=== PATIENT | male | born 1955 | race Caucasian/White ===

== ENCOUNTER → 2019-06-30 | Outpatient (CLI) | payer BC ==
[~2019-06-30] MED LIST: Flomax0.4 MG PO; PROM25 PO; Percocet 5-3251 EACH PO; Tylenol325 MG PO
[2019-06-30 08:50] LABS: BASOPHILS ABSOLUTE AUTO 0.08 K/mm3 (0.00-0.23); BASOPHILS PERCENT AUTO 1 % (0-2); EOSINOPHILS ABSOLUTE AUTO 0.16 K/mm3 (0.00-0.68); EOSINOPHILS PERCENT AUTO 2 % (0-6); Hematocrit 52.6 % (37.0-53.0); Hemoglobin 17.4 g/dL (13.5-17.5); IMMATURE GRAN ABSOLUTE AUTO 0.05 K/mm3 (0.00-0.10); IMMATURE GRAN PERCENT AUTO 1 % (0-1); LYMPHOCYTES ABSOLUTE AUTO 1.36 K/mm3 (0.84-5.20); LYMPHOCYTES PERCENT AUTO 15 % (21-46); MONOCYTES ABSOLUTE AUTO 1.01 K/mm3 (0.16-1.47); MONOCYTES PERCENT AUTO 11 % (4-13); Mean Corpuscular HGB 30.4 pg (26.0-34.0); Mean Corpuscular HGB Conc 33.1 g/dL (31.5-36.5); Mean Corpuscular Volume 92 fL (80-100); Mean Platelet Volume 12.1 fL (9.1-12.4); NEUTROPHILS ABSOLUTE AUTO 6.73 K/mm3 (1.96-9.15); NEUTROPHILS PERCENT AUTO 72 % (41-73); Platelet Count 168 K/mm3 (150-400); RDW Coefficient Variation 13.9 % (11.7-14.2); RDW Standard Deviation 47.1 fL (35.1-46.3); Red Blood Cell Count 5.72 M/mm3 (4.30-5.90); White Blood Cell Count 9.39 K/mm3 (4.00-11.30)
[2019-06-30 08:58] LABS: Albumin, Blood 2.9 g/dL (3.4-5.0); Albumin/Globulin Ratio 0.6 (0.8-1.8); Bilirubin, Total 2.4 mg/dL (0.1-1.0); Bun/Creatinine Ratio 18.1 (12.0-20.0); Creatinine, Blood 1.38 mg/dL (0.60-1.20); Globulin, Blood 4.5 g/dL (2.2-4.0); Potassium, Blood 3.7 mmol/L (3.5-5.5); Total Protein, Blood 7.4 g/dL (6.4-8.2)
== END | disposition home or self-care (01) ==
LOC: LAB EV 08:44 → LAB SHORT 08:44
PROVIDERS: Physician Assistant
DX: R74.8 Abnormal levels of other serum enzymes (principal); R10.32 Left lower quadrant pain; R10.11 Right upper quadrant pain
CPT/HCPCS: 80053; 83690; 85025

== ENCOUNTER → 2019-07-14 | Outpatient (CLI) | payer BC ==
[2019-07-14 10:29] LABS: BASOPHILS ABSOLUTE AUTO 0.08 K/mm3 (0.00-0.23); BASOPHILS PERCENT AUTO 1 % (0-2); EOSINOPHILS PERCENT AUTO 1 % (0-6); Hematocrit 45.3 % (37.0-53.0); Hemoglobin 15.5 g/dL (13.5-17.5); IMMATURE GRAN ABSOLUTE AUTO 0.06 K/mm3 (0.00-0.10); IMMATURE GRAN PERCENT AUTO 1 % (0-1); LYMPHOCYTES ABSOLUTE AUTO 1.04 K/mm3 (0.84-5.20); LYMPHOCYTES PERCENT AUTO 9 % (21-46); MONOCYTES ABSOLUTE AUTO 0.93 K/mm3 (0.16-1.47); MONOCYTES PERCENT AUTO 8 % (4-13); Mean Corpuscular HGB 31.1 pg (26.0-34.0); Mean Corpuscular HGB Conc 34.2 g/dL (31.5-36.5); Mean Corpuscular Volume 91 fL (80-100); Mean Platelet Volume 12.6 fL (9.1-12.4); NEUTROPHILS ABSOLUTE AUTO 9.29 K/mm3 (1.96-9.15); NEUTROPHILS PERCENT AUTO 81 % (41-73); Platelet Count 172 K/mm3 (150-400); RDW Coefficient Variation 16.5 % (11.7-14.2); RDW Standard Deviation 54.4 fL (35.1-46.3); Red Blood Cell Count 4.98 M/mm3 (4.30-5.90)
[2019-07-14 10:39] LABS: Alanine Aminotransfer (ALT/SGP 63 U/L (12-78); Albumin, Blood 2.4 g/dL (3.4-5.0); Albumin/Globulin Ratio 0.5 (0.8-1.8); Alk Phos 384 U/L (40-126); Anion Gap 13 mmol/L (6-16); Aspartate Aminotrans (AST/SGOT 206 U/L (12-37); Bilirubin, Total 6.3 mg/dL (0.1-1.0); Blood Urea Nitrogen 13 mg/dL (8-24); Bun/Creatinine Ratio 14.1 (12.0-20.0); CO2, Blood 27 mmol/L (21-32); Calcium, Blood 8.8 mg/dL (8.5-10.1); Chloride, Blood 101 mmol/L (98-108); Creatinine, Blood 0.92 mg/dL (0.60-1.20); Globulin, Blood 4.5 g/dL (2.2-4.0); Glomerular Filtration Rate >60 (60-); Glucose, Blood 80 mg/dL (70-99); Potassium, Blood 3.3 mmol/L (3.5-5.5); Sodium, Blood 141 mmol/L (136-145); Total Protein, Blood 6.9 g/dL (6.4-8.2)
[2019-07-14 11:30] LABS: International Normalized Ratio 1.2; Prothrombin Time Results 12.7 Sec (9.7-11.5)
== END | disposition home or self-care (01) ==
LOC: LAB SHORT 10:16 → LAB EV 10:16
PROVIDERS: Internal Medicine Critical Care Medicine; Physician Assistant
DX: R06.00 Dyspnea, unspecified (principal); R16.0 Hepatomegaly, not elsewhere classified
CPT/HCPCS: 80053; 85025; 85379; 85610; 85730

== ENCOUNTER 2019-07-30 19:02 | Inpatient (IN) | payer BC ==
[~2019-07-30] VITALS: Ht 170.2 cm; Wt 92.3 kg
[2019-07-30] MEDS ORDERED: OXYC10TA19 PO (19:15)
[2019-07-30 19:35] LABS: BASOPHILS ABSOLUTE AUTO 0.05 K/mm3 (0.00-0.23); BASOPHILS PERCENT AUTO 0 % (0-2); EOSINOPHILS ABSOLUTE AUTO 0.06 K/mm3 (0.00-0.68); EOSINOPHILS PERCENT AUTO 0 % (0-6); Hematocrit 47.6 % (37.0-53.0); Hemoglobin 16.4 g/dL (13.5-17.5); IMMATURE GRAN ABSOLUTE AUTO 0.15 K/mm3 (0.00-0.10); IMMATURE GRAN PERCENT AUTO 1 % (0-1); LYMPHOCYTES ABSOLUTE AUTO 1.06 K/mm3 (0.84-5.20); LYMPHOCYTES PERCENT AUTO 6 % (21-46); MONOCYTES ABSOLUTE AUTO 1.59 K/mm3 (0.16-1.47); MONOCYTES PERCENT AUTO 8 % (4-13); Mean Corpuscular HGB 31.7 pg (26.0-34.0); Mean Corpuscular HGB Conc 34.5 g/dL (31.5-36.5); Mean Corpuscular Volume 92 fL (80-100); Mean Platelet Volume 11.7 fL (9.1-12.4); NEUTROPHILS ABSOLUTE AUTO 16.09 K/mm3 (1.96-9.15); NEUTROPHILS PERCENT AUTO 85 % (41-73); NRBC ABSOLUTE 0.02 K/mm3 (0.00-0.02); NRBC Auto 0.1 /100 WBC (0.0-0.2); Platelet Count 196 K/mm3 (150-400); RDW Coefficient Variation 22.3 % (11.7-14.2); RDW Standard Deviation 72.8 fL (35.1-46.3); Red Blood Cell Count 5.17 M/mm3 (4.30-5.90)
[2019-07-30 19:49] LABS: International Normalized Ratio 2.06; Prothrombin Time Results 21.2 Sec (9.7-11.5)
[2019-07-30 19:57] LABS: Albumin/Globulin Ratio 0.4 (0.8-1.8); Bilirubin, Total 21.2 mg/dL (0.1-1.0); Bun/Creatinine Ratio 36.5 (12.0-20.0); Calcium, Blood 9.2 mg/dL (8.5-10.1); Creatinine, Blood 1.48 mg/dL (0.60-1.20); Globulin, Blood 4.5 g/dL (2.2-4.0); Potassium, Blood 4.1 mmol/L (3.5-5.5); Total Protein, Blood 6.5 g/dL (6.4-8.2)
[2019-07-30 20:41] LABS: Magnesium, Blood 2.6 mg/dL (1.6-2.4); Phosphorus, Blood 3.5 mg/dL (2.5-4.9)
[2019-07-30 21:41] LABS: PCO2 Arterial 37.8 mmHg (35-45); PO2 Arterial 73.7 mmHg (80-100); pH Blood Arterial 7.38 (7.35-7.45)
--- NOTE | 2019-07-30 22:30 | NUR ---
PT ARRIVED TO ICU 6 FROM ER VIA GURNEY. ABLE TO STAND AND PIVOT SELF TO BED. A/O X4. PT IS EDEMATOUS FROM WAIST DOWN. HAS ABD PAIN. STATES HE TAKES OXYCODONE AT HOME. SOILA THIMBLE PRESS OPERATOR HERE AND STATES SHE WANTS 2.5L OF IVF RUN FOR SEPSIS PROTOCOL. LS ARE DIM BUT CLEAR IN UPPER LOBES AND FIN SCATTERED CRACKLES IN BASES. NOT SOB AT THE MOMENT. 5L NC ON. PT IS JAUNDICED T/O.
[2019-07-31 03:19] LABS: BASOPHILS ABSOLUTE AUTO 0.04 K/mm3 (0.00-0.23); BASOPHILS PERCENT AUTO 0 % (0-2); EOSINOPHILS ABSOLUTE AUTO 0.08 K/mm3 (0.00-0.68); EOSINOPHILS PERCENT AUTO 1 % (0-6); IMMATURE GRAN ABSOLUTE AUTO 0.09 K/mm3 (0.00-0.10); IMMATURE GRAN PERCENT AUTO 1 % (0-1); LYMPHOCYTES ABSOLUTE AUTO 1.14 K/mm3 (0.84-5.20); LYMPHOCYTES PERCENT AUTO 7 % (21-46); MONOCYTES ABSOLUTE AUTO 1.42 K/mm3 (0.16-1.47); MONOCYTES PERCENT AUTO 9 % (4-13); Mean Corpuscular HGB 31.3 pg (26.0-34.0); Mean Corpuscular HGB Conc 34.1 g/dL (31.5-36.5); Mean Corpuscular Volume 92 fL (80-100); Mean Platelet Volume 11.3 fL (9.1-12.4); NEUTROPHILS ABSOLUTE AUTO 12.88 K/mm3 (1.96-9.15); NEUTROPHILS PERCENT AUTO 82 % (41-73); Platelet Count 142 K/mm3 (150-400); RDW Coefficient Variation 21.7 % (11.7-14.2); RDW Standard Deviation 70.5 fL (35.1-46.3); Red Blood Cell Count 4.79 M/mm3 (4.30-5.90); White Blood Cell Count 15.65 K/mm3 (4.00-11.30)
[2019-07-31 03:35] LABS: Source, Urine Clean Catch
[2019-07-31 03:38] LABS: Appearance, Urine Clear (Clear); Blood, Urine 1+ (Neg); Color, Urine Amber (P-Yellow); Glucose Qualitative, Urine Neg (Neg); Ketones, Urine 1+ (Neg); Leukocyte Esterase, Urine 1+ (Neg); Nitrite, Urine Pos (Neg); Protein, Urine 2+ (Neg); Urobilinogen, Urine 3+ (Normal)
[2019-07-31 03:40] LABS: Bilirubin, Urine 3+ (Neg)
[2019-07-31 03:43] LABS: Amorphous Light (0-Heavy); Bacteria Mod /hpf; Hyaline Casts 25-50 /lpf (0-2); Red Blood Cells, Urine 0-2 /hpf (0-2); Squamous Epithelial Cells Not Seen /hpf (Few)
[2019-07-31 03:43] LABS: Albumin, Blood 1.8 g/dL (3.4-5.0); Albumin/Globulin Ratio 0.5 (0.8-1.8); Bilirubin, Total 18.1 mg/dL (0.1-1.0); Bun/Creatinine Ratio 34.2 (12.0-20.0); Calcium, Blood 8.2 mg/dL (8.5-10.1); Creatinine, Blood 1.52 mg/dL (0.60-1.20); Globulin, Blood 3.9 g/dL (2.2-4.0); Potassium, Blood 4.2 mmol/L (3.5-5.5); Total Protein, Blood 5.7 g/dL (6.4-8.2)
--- NOTE | 2019-07-31 04:30 | NUR ---
CALLED DR. MATTSON ABOUT GLUCOSE ON LABS BEING 53. NEW ORDERS FOR D50. PT AROUSES EASILY. ABLE TO DRINK FLUID. WILL OFFER JUICE WELL PER DR. MATTSON.
[2019-07-31 05:13] LABS: Adenovirus Not Detected (NOT DETECT); Bordetella pertussis Not Detected (NOT DETECT); Chlamydophila pneumoniae Not Detected (NOT DETECT); Coronavirus 229E Not Detected (NOT DETECT); Coronavirus HKU1 Not Detected (NOT DETECT); Coronavirus NL63 Not Detected (NOT DETECT); Coronavirus OC43 Not Detected (NOT DETECT); Human Metapneumovirus Not Detected (NOT DETECT); Human Rhinovirus/Enterovirus Not Detected (NOT DETECT); Influenza A/2009-H1 Not Detected (NOT DETECT); Influenza A/H1 Not Detected (NOT DETECT); Influenza A/H3 Not Detected (NOT DETECT); Influenza B Not Detected (NOT DETECT); Mycoplasma pneumoniae Not Detected (NOT DETECT); Parainfluenza Virus 1 Not Detected (NOT DETECT); Parainfluenza Virus 2 Not Detected (NOT DETECT); Parainfluenza Virus 3 Not Detected (NOT DETECT); Parainfluenza Virus 4 Not Detected (NOT DETECT); Respiratory Syncytial Virus Not Detected (NOT DETECT)
--- NOTE | 2019-07-31 05:52 | NUR ---
SUMMARY PT WAS ADMITTED FROM ER. A/O X4. HAD ABD PAIN THAT WAS RELIEVED BY ONE DOSE OF FENTANYL. NO SOB SINCE ARRIVING IN UNIT. PT IS EDEMATOUS FROM WAIST DOWN. LACTIC IS TRENDING IN RIGHT DIRECTION. GLUCOSE WAS 53 ON LABS THIS AM. GAVE D50 PER ORDERS AND CRANBERRY JUICE. PT CAME UP TO 107. NO SIGN OF DISTRESS. CALL LIGHT IN REACH.
--- NOTE | 2019-07-31 08:50 | NUR ---
ASSESSMENT- PT AWAKE, ALERT, COOPERATIVE. MOVES SLOWLY, C/O GENERALIZED WEAKNESS. PERRL, SKIN JAUNDICED. SKIN W/D. AFEBRILE. SR, SBP 90'S. PIV X 2 INTACT. NS TKO. LUNGS CLEAR, CRACKLES BASES. RESPIRATIONS UNLABORED. NO N/V. POOR APPETITE. VOIDING SMALL AMOUNTS, URINE ICTERIC. LEGS EDEMATOUS, PITTING EDEMA. DR. MENA AT BEDSIDE-DISCUSSION WITH PT. DR. SERRANO HERE-UPDATED. RX FOR C/O ABDOMINAL DISCOMFORT, ASSISTED TO REPOSITION IN BED. PT'S SISTER CALLED, PT GAVE CONSENT TO TALK WITH HER. CALLED BACK AND UPDATED.
--- NOTE | 2019-07-31 11:28 | NUR ---
PT C/O WEAKNESS, FATIGUES EASILY. ASSIST BACK TO BED, WAS UP IN CHAIR WITH ASSISTANCE OF THERAPIST. PALLIATIVE CARE RN DISCUSSED PLAN WITH PT.
--- NOTE | 2019-07-31 11:29 | NUR ---
Pt resting in bed upon arrival. Pt reports 8/10 pain in lower abdomen. Pt reports mild dyspnea due to his COPD. Pt is A&OX4. Engaged in therapeutic discussion and listening. Pt reports still processing visit from Dr Carroll's visit. Pt reports not remembering everything he was told. Revisited Dr Carroll's visit based off his note. Answered questions and concerns. Discussed hospice if no improvement with liver funtion over the next couple of days. Educated on hospice philosophy. Pt appears significantly lethargic. Assisted Pt out of bed for him to use bathroom. Assisted Pt back to bed. Received verbal permission from Pt to call his sister in law Day and update her. Discussed code status with Pt as well. Pt reports he needs some time to process and discuss things with Day. Continued therapeutic listening. Assisted Pt with dialing Day's phone number and this RN ended visit. Spoke with Bedside RN Tawanna and discussed case. Called and spoke with Pt's sister in law Day. Engaged in therapeutic discussion regarding Dr Carroll's visit. Day reports she can move Pt in with her to help provide care if Pt discharges with hospice. Answered questions and concerns. Palliative Care will remain available.
--- NOTE | 2019-07-31 13:54 | NUR ---
PT SLEEPING NOW-NO COMPLAINTS OF PAIN. RESPIRATIONS UNLABORED. SR. SATURATIONS STABLE WITH 3 L/MIN NC
--- NOTE | 2019-07-31 16:07 | NUR ---
Initial spiritual care note: Mr. Godinez appears frail. He is slow to speak and appears somewhat muddled. He tells me he is very concerned about making out a will. In fact, this was foremost on his mind. "I don't want everybody fighting over my things." He tells me he is hoping that antibiotics will give him more time. In my estimation, he is either still in emotional shock about his dire dx, or he is mentally unable to grasp it all. He appeared to want to talk about making plans for the future, and I facilitated this conversation. He is non-hindu. When I took his hand, he became tearful for a few moments. He appeared to appreciaite being heard and affirmed. I will remain available.
--- NOTE | 2019-07-31 18:22 | NUR ---
PT WITH POOR APPETITE FOR DINNER. ASSISTED UP TO TOILET AGAIN, MOVES SLOWLY, C/O BEING TIRED. EMOTIONAL SUPPORT GIVEN. PT'S SISTER CALLED-PT TALKED WITH HER ON PHONE WITH MUCH ENCOURAGEMENT. REMAINS ICTERIC, NS AT 100 CC/HR. RESPIRATIONS UNLABORED, CONTINUE TO MONITOR. PCU STATUS
--- NOTE | 2019-07-31 20:00 | NUR ---
ASSUMED CARE NOTE/ TRANSFER NOTE: ASSUMED CARE OF PT AT 1900, RECEVIED REPORT FROM DOMINIC BRITO. PT IS ALERT AND ORIENTEDX3, AT TIMES IS FORGETFUL. PT IS ON 3L OF O2 VIA NC, SPO2 ABOVE 90% PT DENIES ANY SOB AT THIS TIME. PT IS IN NSR WITH HR IN THE 80'S. PT C/O ABDOMINAL PAIN 11/26. MEDS GIVEN PERSCRIBED. PT WALKS TO BEDSIDE TOILET, WITH ONE PERSON ASSIST. PT IS ENCOURAGED TO USE URINAL AT BEDSIDE. VITALS STABLE. NS RUNNING @ 100ML/HR 2137: REPORT GIVEN TO MARIO BRITO. PT WAS TRANSPORTED VIA WHEELCHAIR. PT CONTINUED TO BE ON 3L OF 02 VIA NC FOR TRANSPORT.
--- NOTE | 2019-08-01 03:49 | NUR ---
SHIFT SUMMARY ASSUMED CARE OF PT AT 2139. PT IS A/OX4, DENIES N/T IN HIS EXTREMITIES, SCLERA OF THE EYES IS BRIGHT YELLOW. HEART SOUNDS REGULAR, TELE SHOWS SINUS @ 85, DENIES CP AT THIS TIME. LUNG SOUNDS CLEAR, ON 3L BASLINE, DENIES SOB AT THIS TIME. ABD DISTENDED BUT SOFT, DENIES PAIN WITH PALPITATION BUT STATES HE HAS BURNING PAIN THERE. MEDICATED PER EMAR. PT C/O FREQUENT LOOSE STOOLS. URINE BRIGHT YELLOW AND CLEAR. PT SKIN IS JAUNDICED, SCATTERED BRUISING T/O. PT CAN WALK TO THE BATHROOM SBA. PT SLEPT FOR A COUPLE HOURS AT A TIME LAST NIGHT. CALL LIGHT IN REACH, BED IN LOWEST POSTION, WILL CONTINUE TO MONITOR UNTIL DAYSHIFT NURSE ARRIVES.
[2019-08-01 05:23] LABS: BASOPHILS ABSOLUTE AUTO 0.03 K/mm3 (0.00-0.23); BASOPHILS PERCENT AUTO 0 % (0-2); EOSINOPHILS ABSOLUTE AUTO 0.11 K/mm3 (0.00-0.68); EOSINOPHILS PERCENT AUTO 1 % (0-6); Hematocrit 44.5 % (37.0-53.0); Hemoglobin 15.6 g/dL (13.5-17.5); IMMATURE GRAN ABSOLUTE AUTO 0.11 K/mm3 (0.00-0.10); IMMATURE GRAN PERCENT AUTO 1 % (0-1); LYMPHOCYTES ABSOLUTE AUTO 0.88 K/mm3 (0.84-5.20); LYMPHOCYTES PERCENT AUTO 5 % (21-46); MONOCYTES ABSOLUTE AUTO 1.53 K/mm3 (0.16-1.47); MONOCYTES PERCENT AUTO 9 % (4-13); Mean Corpuscular HGB 31.4 pg (26.0-34.0); Mean Corpuscular HGB Conc 35.1 g/dL (31.5-36.5); Mean Corpuscular Volume 90 fL (80-100); Mean Platelet Volume 12.2 fL (9.1-12.4); NEUTROPHILS ABSOLUTE AUTO 14.93 K/mm3 (1.96-9.15); NEUTROPHILS PERCENT AUTO 85 % (41-73); Platelet Count 166 K/mm3 (150-400); RDW Coefficient Variation 22.4 % (11.7-14.2); RDW Standard Deviation 69.8 fL (35.1-46.3); Red Blood Cell Count 4.97 M/mm3 (4.30-5.90); White Blood Cell Count 17.59 K/mm3 (4.00-11.30)
[2019-08-01 05:43] LABS: International Normalized Ratio 1.94
[2019-08-01 05:53] LABS: Alanine Aminotransfer (ALT/SGP 98 U/L (12-78); Albumin, Blood 1.8 g/dL (3.4-5.0); Albumin/Globulin Ratio 0.5 (0.8-1.8); Alk Phos 315 U/L (50-136); Anion Gap 11 mmol/L (6-16); Aspartate Aminotrans (AST/SGOT 401 U/L (12-37); Bilirubin, Total 19.7 mg/dL (0.1-1.0); Blood Urea Nitrogen 47 mg/dL (8-24); Bun/Creatinine Ratio 39.2 (12.0-20.0); CO2, Blood 23 mmol/L (21-32); Calcium, Blood 8.4 mg/dL (8.5-10.1); Chloride, Blood 100 mmol/L (98-108); Globulin, Blood 3.8 g/dL (2.2-4.0); Glomerular Filtration Rate >60 (60-); Glucose, Blood 56 mg/dL (70-99); Potassium, Blood 3.7 mmol/L (3.5-5.5); Sodium, Blood 134 mmol/L (136-145); Total Protein, Blood 5.6 g/dL (6.4-8.2)
--- NOTE | 2019-08-01 10:42 | NUR ---
Pt visit this AM. Pt resting in bed upon arrival. Pt appears weak and lethargic. Pt is A&O and reports 10/10 pain in his abdomen. Pt reports recently receiving pain medication. Discussed his concerns regarding getting his afairs in order including last will and testimate. Plan is to allow Pt's sister in law Day to come in and help him complete forms and have [facility] notorize forms. Spoke with Bedside RN Shae and discussed case. Shae is agreeable with plan. Spoke with Nursing Director Media Sharri and discussed case. Sharri is agreeable to allow Day to visit Pt and assist with completion of legal documents. Spoke with Pt's sister in law Day by phone. Day plans to come in around noon today to assist with completing documents. Spoke with Caremanager Lula and discussed plan of care including possibly hospice. Palliative Care will remain available.
--- NOTE | 2019-08-01 14:41 | NUR ---
Pt F/U visit this afternoon. Pt's sister in law Day at bedside. Pt resting in bed. Day reports completing forms. Answered questions relating to Advanced Directive. Called and spoke with [facility] Komal Aranda. Reported Pt and family ready for forms to be notarized. Spoke with Pt's Bedside DARYL Kaufman and discussed case. Palliative Care will remain available.
--- NOTE | 2019-08-01 16:51 | NUR ---
Spiritual care note: Mr. Godinez had recently completed his POLST, will, and durable POA with his [id number]. He was alone in room when I visited. He appears more ill than yesterday. He tells me he feels at peace now that these tasks have been completed. He was very tired and quite weak. I did not keep him engaged long. I assured him of compassionate care and attention. He denied fear/pain. I will remain available.
--- NOTE | 2019-08-01 19:00 | NUR ---
PT. LYING QUIETLY. SISTER IN LAW CAME IN TODAY AND HELPED HIM FILL OUT HIS POLST, LAST WILL AND TESTAMENT, AND ADVANCED DIRECTIVE. EXECUTIVE SERVICES ADMINISTRATOR CAME TO ROOM AND NOTORIZED THE SIGNING OF THE FORMS. PT. WILL BECOME COMFORT CARE TOMORROW PER DR. SERRANO AND WILL EVENTUALLY GO HOME WITH [id number] ON HOSPICE, PT. WAS ABLE TO TALK TO MOTHER AND SISTER TODAY. PT. NOW A DNR.
--- NOTE | 2019-08-01 19:30 | NUR ---
ASSUMED CARE. ALYSSA FOUND SITTING ON SIDE OF BED. IV ALARM GOING OFF. RT JUST FINISHED IN ROOM. FIXED IV ALARM. LUNG SOUNDS DIMINISHED THROUGHOUT, COUGH DRY, NONPRODUCTIVE, SOB WITH EXERTION. 3 LITERS O2NC WITH SATS IN THE 90'S. HR SINUS ON TELEMETRY RUNNING IN 80'S. NO CHEST PAIN NOTED. BLE EDEMA 3+ UP TO HIPS AND ABDOMIN. EDUCATED ON ELEVATION. SKIN JAUDICE/DUSKY COLOR WITH SCATTERED BRUISES. ABDOMIN MILD DISTENTION, NO NAUSEA, STATES HAVING BM. FREQUENT URINATION, NO BURNING NOTED. APPETITE IS FAIR. PAIN STATES IS THERE. IV INFUSING AT 100ML/HR. BLOOD SUGAR WAS JUST CHECKED RUNNING ABOVE 100. CALL LIGHT IN REACH. WILL CONTINUE TO MONITOR.
--- NOTE | 2019-08-01 20:03 | NUR ---
MEDICATE FOR PAIN / PER PATIENT REQUEST. MORPHINE 0.5MG IV. ADMINISTERED NIGHT MEDS. DENIES ANY OTHER NEEDS AT THIS TIME.
--- NOTE | 2019-08-01 23:05 | NUR ---
ALYSSA WAS UP TO BATHROOM. VOIDED ORANGE COLOR URINE. WHILE WALKING BACK TO BED, HE HAD TO STOP SEVERAL TIMES TO TAKE A REST. WEAKNESS NOTED TO BLE. ENCOURAGE TO CALL IF HE FEELS TO WEAK TO GET UP. ADMINISTERED FLUIDS, ANTIBOTIC. BLOOD SUGAR RECHECK AT 2236 WAS 115. PAIN TOLERABLE.
--- NOTE | 2019-08-02 03:27 | NUR ---
ALEX FROM TELEMETRY MONITORING CALLED TO INFORM THAT ALYSSA JUST HAD A RUN OF 16 BEATS OF SVT RATE OF 180. HE HAD ONE PRIOR AROUND MIDNIGHT OF 10 BEATS. THIS IS NOT THE FIRST NIGHT HE HAS HAD THE SVT. STATES HE HAS BEEN HAVING THEM OCCATIONAL OFF AND ON.
--- NOTE | 2019-08-02 03:46 | NUR ---
CALLED DR. MATTSON REGARDING RUN OF SVT TWICE TONIGHT. HE ORDERED A BMP AND MAGNEISUM FOR MORNING.
[2019-08-02 05:16] LABS: BASOPHILS ABSOLUTE AUTO 0.02 K/mm3 (0.00-0.23); BASOPHILS PERCENT AUTO 0 % (0-2); EOSINOPHILS ABSOLUTE AUTO 0.05 K/mm3 (0.00-0.68); EOSINOPHILS PERCENT AUTO 0 % (0-6); Hematocrit 43.9 % (37.0-53.0); Hemoglobin 15.5 g/dL (13.5-17.5); IMMATURE GRAN ABSOLUTE AUTO 0.11 K/mm3 (0.00-0.10); IMMATURE GRAN PERCENT AUTO 1 % (0-1); LYMPHOCYTES PERCENT AUTO 4 % (21-46); MONOCYTES ABSOLUTE AUTO 1.72 K/mm3 (0.16-1.47); MONOCYTES PERCENT AUTO 9 % (4-13); Mean Corpuscular HGB 31.6 pg (26.0-34.0); Mean Corpuscular HGB Conc 35.3 g/dL (31.5-36.5); Mean Corpuscular Volume 90 fL (80-100); Mean Platelet Volume 12.2 fL (9.1-12.4); NEUTROPHILS PERCENT AUTO 86 % (41-73); Platelet Count 175 K/mm3 (150-400); RDW Coefficient Variation 22.6 % (11.7-14.2); RDW Standard Deviation 70.7 fL (35.1-46.3)
--- NOTE | 2019-08-02 05:18 | NUR ---
SHIFT SUMMARY: ALYSSA HAD A ROUGH NIGHT WITH PAIN AND DICOMFORT IN BACK AND ABDOMIN. IV FENTANYL AND TRAMADOL TX USED. HEATING PAD ALSO GIVEN FOR LOWER BACK. HE HAS BEEN INDEPENDENT IN THE ROOM TO THE BATHROOM. DID NOTE WEAKNESS STARTING IN BLE, HAS TO PAUSE WHEN WALKING FROM THE BATHROOM TO THE BED, TO CATCH BREATH AND PREVENT FALLING. STILL JAUDICE. LUNGS DIMINISHED, STILL ON 3 LITERS O2 NC WITH SATS IN THE 90'S. VS WNL, AFEBRILE. IV FLUIDS AND ANTIBOTICS INFUSED WITH NO DIFFICULTY. DID HAVE RUN OF SVT IN THE 180'S FRIST RUN WAS OF 10 BEATS SECOND OF 16 BEATS. HE DENIED PALPITATIONS OR SYMPTOMS AT THOSE TIMES. UP AND DOWN IN SLEEP. POOR APPETITE. +3 EDEMA IN BLE AND UP TO LOWER ABDOMIN. DR. MATTSON CALLED REGARDING SVT, ORDER FOR BMP AND MAG ADDED TO LABS. WILL REPORT TO DAY SHIFT THE CHANGES THIS SHIFT.
[2019-08-02 05:45] LABS: Albumin, Blood 1.8 g/dL (3.4-5.0); Anion Gap 12 mmol/L (6-16); Blood Urea Nitrogen 44 mg/dL (8-24); Bun/Creatinine Ratio 41.1 (12.0-20.0); CO2, Blood 20 mmol/L (21-32); Calcium, Blood 8.6 mg/dL (8.5-10.1); Chloride, Blood 99 mmol/L (98-108); Creatinine, Blood 1.07 mg/dL (0.60-1.20); Glomerular Filtration Rate >60 (60-); Glucose, Blood 89 mg/dL (70-99); Magnesium, Blood 2.5 mg/dL (1.6-2.4); Phosphorus, Blood 1.6 mg/dL (2.5-4.9); Potassium, Blood 3.6 mmol/L (3.5-5.5); Sodium, Blood 131 mmol/L (136-145)
--- NOTE | 2019-08-02 10:20 | NUR ---
PT. REPORTING PAIN OF 11/10 10 MG ROXANOL GIVEN .
--- NOTE | 2019-08-02 10:51 | NUR ---
Pt resting in bed upon arrival. Pt reports wanting to start comfort measures only now. He also reports significant pain in his abdomen and back and states his pain is 12/10. Pt is requesting pain medication. Spoke with Dr Molina and discussed case. Requested long acting MS Contin to be added to regimen. Dr Molina will consider this request if Roxanol is not beneficial. Spoke with Bedside RN Shae, discussed case, and reviewed comfort medications. Shae will offer Pt's Roxanol. Spoke with Caremankatlin Cotton and discussed discharge plan. Plan is for Pt to D/C home with [facility] tomorrow with equipment being delivered to home today. Called derrick spoke with Pt's sister in law Bernstein and reviewed plan. Answered questions and concerns. Palliative Care will remain available for symptom management and therapeutic visits.
--- NOTE | 2019-08-02 12:20 | NUR ---
PT. AWAKE AND REPORTING 12/10 PAIN AT THIS TIME. WANTS MORE PAIN MEDS. 10 OF ROXANOL GIVEN.
--- NOTE | 2019-08-02 13:43 | NUR ---
PT. WAS GIVEN 10 MG OF ROXANOL AND PT. HAS BEEN SLEEPING SOUNDLY EVER SINCE.
--- NOTE | 2019-08-02 13:57 | NUR ---
PT. SLEEPING SOUNDLY, BREATHING DEEP AND UNLABORED.
--- NOTE | 2019-08-02 16:14 | NUR ---
Spiritual care note: Mr. Godinez appears frail and is weak. He denies pain/fear and tells me he is "ready to be done." I sat beside him for awhile, holding his hand, providing presence of love. I will remain available.
--- NOTE | 2019-08-02 16:42 | NUR ---
PT. STILL SLEEPING RR AT 10 PER MINUTES. SLEEPS WITH EYES OPEN. RESPIRATIONS EVEN.
--- NOTE | 2019-08-02 18:00 | NUR ---
PT. STILL SLEEPING
--- NOTE | 2019-08-02 18:58 | NUR ---
PT. REPORTED PAIN OF 12/10 AGAIN, SITTING ON EDGE OF BED REQQUESTED ICE WATER AND SOMETHING FOR PAIN. 10 MG ROXANOL GIVEN. NO NOTEABLE CHANGES TODAY. PROBABLE DISCHARGE HOME ON HOSPICE TOMORROW. GOING TO [id number] AND BROTHERS HOME.
--- NOTE | 2019-08-03 03:50 | NUR ---
PT AT 324. FOUND TO BE WITHOUT RESPS OR HR. FAMILY NOTIFIED AT 339. AWAITING RETURN CALL FROM FAMILY W/NAME OF CHOSEN HOME.
--- NOTE | 2019-08-03 03:55 | NUR ---
LATE ENTRY FOR SHIFT SUMMARY PRIOR TO PT . PT HAS BEEN A/OX2-3. MEDX2 FOR PAIN. SECOND ROXANOL DOSE RESOLVED PAIN. PT STANDING UP TO VOID W/ASSISTANCE. NEEDING 2 STAFF SUPPORT TO STABILIZE PT WHILE STANDING. ASSISTED TO RECLINER AND PILLOWS PLACED FOR COMFORT. TAB ALARM PLACED. PT RESTED QUIETLY AND STATES HE FEELS COMFORTABLE WHILE UP IN RECLINER. ASSISTED BACK TO BED PER PT REQUEST AROUND 0300. PT NOTED TO BE WITHOUT RESPS AND HR AT 0325.
--- NOTE | 2019-08-03 06:39 | NUR ---
SEB'S SERVICE ARRIVED TO PASSENGER CAR CLEANING SUPERVISOR PT AT THIS TIME.
== END 2019-08-03 03:25 | DRG 871 ==
LOC: ER 19:02 → ICUE 22:18 → ICUW 22:18 → MEDS 22:18 → ICUE 22:21 → MEDS 07-31 21:40
PROVIDERS: Emergency Medicine; Family Medicine; Nurse Practitioner Acute Care; ADMIT Internal Medicine
DX: A41.9 Sepsis, unspecified organism (principal); G92 Toxic encephalopathy; J96.01 Acute respiratory failure with hypoxia; C78.7 Secondary malignant neoplasm of liver and intrahepatic bile duct; E87.1 Hypo-osmolality and hyponatremia; E87.2 Acidosis; N17.9 Acute kidney failure, unspecified; E46 Unspecified protein-calorie malnutrition; C34.12 Malignant neoplasm of upper lobe, left bronchus or lung; C78.1 Secondary malignant neoplasm of mediastinum; C79.51 Secondary malignant neoplasm of bone; D68.9 Coagulation defect, unspecified; N39.0 Urinary tract infection, site not specified; Z51.5 Encounter for palliative care; R65.20 Severe sepsis without septic shock; B19.20 Unspecified viral hepatitis C without hepatic coma; E86.0 Dehydration; F17.210 Nicotine dependence, cigarettes, uncomplicated; G89.3 Neoplasm related pain (acute) (chronic); J43.9 Emphysema, unspecified; E16.2 Hypoglycemia, unspecified; Z68.28 Body mass index [BMI] 28.0-28.9, adult
CPT/HCPCS: 0099U; 36415; 36600; 70450; 71045; 71250; 74176; 80053; 80069; 81001; 82140; 82803; 82947; 83605; 83735; 84100; 84145; 85025; 85610; 85730; 86850; 86900; 86901; 87040; 87086; 93005; 93010; 94640; 94760; 96365; 97110; 97162; 97530; 99285-25; J0696; J3010; J7030; J7042; J7050